=== PATIENT | female | born 2000 | race Caucasian/White ===

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

== ENCOUNTER 2019-06-12 22:02 | Emergency (ER) | payer MEDICAID, OTHER ==
[2019-06-12 22:57] LABS: ABSOLUTE BASOPHILS # (AUTO) 0.1 10^3/uL (0.0-0.2); ABSOLUTE EOSINOPHILS # (AUTO) 0.3 10^3/uL (0.0-0.6); ABSOLUTE LYMPHOCYTES (AUTO) 2.9 10^3/uL (0.5-4.7); ABSOLUTE MONOCYTES (AUTO) 0.8 10^3/uL (0.1-1.4); ABSOLUTE NEUT (AUTO) 7.2 10^3/uL (1.7-8.2); BASOPHILS % (AUTO) 0.9 % (0-2); EOSINOPHILS % (AUTO) 2.3 % (0-6); HEMATOCRIT 34.2 % (36.0-47.0); HEMOGLOBIN 11.3 g/dL (12.0-15.5); LYMPHOCYTES % (AUTO) 25.7 % (13-45); MEAN CORPUSCULAR HEMOGLOBIN 23.2 pg (27.0-33.4); MEAN CORPUSCULAR HGB CONC 33.1 g/dL (32.0-36.0); MEAN CORPUSCULAR VOLUME 70 fl (80-97); MONOCYTES % (AUTO) 7.1 % (3-13); PLATELET COUNT 254 10^3/uL (150-450); RED BLOOD COUNT 4.87 10^6/uL (3.72-5.28); RED CELL DISTRIBUTION WIDTH 18.3 % (11.5-14.0); TOTAL CELLS COUNTED % (AUTO) 100 %; WHITE BLOOD COUNT 11.3 10^3/uL (4.0-10.5)
[2019-06-12 23:06] LABS: APPEARANCE,URINE CLOUDY; BILIRUBIN,URINE NEGATIVE (NEGATIVE); COLOR,URINE YELLOW; GLUCOSE, URINE NEGATIVE (NEGATIVE); KETONES,URINE NEGATIVE (NEGATIVE); LEUKOCYTE ESTERASE,URINE NEGATIVE (NEGATIVE); NITRITE,URINE NEGATIVE (NEGATIVE); PROTEIN,URINE NEGATIVE (NEGATIVE); URINE SPECIFIC GRAVITY 1.021
[2019-06-12 23:16] LABS: ALBUMIN 4.3 g/dL (3.7-5.6); ALKALINE PHOSPHATASE 41 U/L (50-135); ANION GAP 11 (5-19); ASPARTATE AMINO TRANSFERASE 16 U/L (5-30); BILIRUBIN,DIRECT 0.1 mg/dL (0.0-0.4); BILIRUBIN,TOTAL 0.2 mg/dL (0.2-1.3); BLOOD UREA NITROGEN 6 mg/dL (7-20); CALCIUM 9.9 mg/dL (8.4-10.2); CARBON DIOXIDE 26 mmol/L (22-30); CHLORIDE 103 mmol/L (98-107); GLUCOSE 86 mg/dL (75-110); TOTAL PROTEIN 7.3 g/dL (6.3-8.2)
--- NOTE | 2019-06-13 01:26 | RADIOLOGY REPORT (SQ) ---
EXAM DESCRIPTION: US TRANSVAGINAL COMPLETED DATE/TME: 06/13/2019 00:07 CLINICAL HISTORY: 18 years Female, , pelvic pain 03/19/2019 COMPARISON: None. TECHNIQUE: Complete first trimester obstetrical ultrasound with transabdominal and transvaginal imaging. FINDINGS: Uterus: The uterus measures 11.0 x 6.7 x 6.5 cm. No myometrial abnormalities. Cervical length of 3.1 cm. Gestational sac: Normal-appearing gestational sac. pole: pole identified with a crown-rump length of 2.39 cm. heart motion: heart rate of 175 bpm. Yolk sac: Normal-appearing yolk sac. Placenta: Not well evaluated due to early gestational age. Right ovary: Right ovary measures 5.6 x 2.5 x 2.8 cm. Left ovary: The left ovary is enlarged measuring 12.5 x 9.5 x 13.1 cm. Left ovarian cyst measuring 11.7 x 0.9 x 12.8 cm. No internal blood flow or septations. Adnexa: No large adnexal masses. Free fluid: No free pelvic fluid. Duplex imaging: Color and spectral Doppler imaging demonstrates blood flow within the ovaries bilaterally. IMPRESSION: 1. Single live intrauterine with estimated gestational age of 9 weeks, 1 days by crown-rump length. heart rate of 175 bpm. 2. Large left ovarian cyst measuring 12.8 cm in greatest dimension without suspicious change. Gynecological evaluation recommended. Follow-up ultrasound in 6-12 weeks recommended to confirm stability.
--- NOTE | 2019-06-13 01:43 | ER Document Report ---
ED General - General Chief Complaint: Pelvic Pain Stated Complaint: LOWER ABDOMINAL PAIN Time Seen by Provider: 06/13/19 00:06 Primary Care Provider: LINH SUAREZ PA-C [Primary Care Provider] - Follow up as needed TRAVEL OUTSIDE OF THE [place] IN LAST 30 DAYS: No - HPI Notes: Patient is a 18-year-old female who presents emergency department for evaluation. She is a G1, P0 at approximately 9 weeks gestation. She was actually seen emergently last night for evaluation. She was diagnosed with a left ovarian cyst. She states tonight she had a sudden onset of left pelvic pain, sharp in nature, that lasted only few seconds. She went to the bathroom, and felt a "gush" of fluid. She states she did not believe it was urine because it was not yellow. She states she became concerned so she presents to the ED for further evaluation. She is following with OB at this time. - Related Data Allergies/Adverse Reactions: Gas Anesthesia Allergy (Uncoded 10/21/18 12:36) BP drops Home Medications: vitamins Past Medical History - General Information source: Patient - Social History Smoking Status: Never Smoker Family History: Reviewed & Not Pertinent Patient has suicidal ideation: No Patient has homicidal ideation: No - Past Medical History Cardiac Medical History: Denies: Hx Coronary Artery Disease, Hx Heart Attack, Hx Hypertension Pulmonary Medical History: Reports: Hx Asthma Denies: Hx Bronchitis, Hx COPD, Hx Pneumonia Neurological Medical History: Denies: Hx Cerebrovascular Accident, Hx Seizures Endocrine Medical History: Reports: Other - Hypoglycemia Renal/ Medical History: Denies: Hx Peritoneal Dialysis Musculoskeletal Medical History: Denies Hx Arthritis Past Surgical History: Reports: Hx Tonsillectomy - Immunizations Immunizations up to date: Yes Hx Diphtheria, Pertussis, Tetanus Vaccination: Yes Review of Systems - Review of Systems Constitutional: No symptoms reported EENT: No symptoms reported Cardiovascular: No symptoms reported Respiratory: No symptoms reported Gastrointestinal: No symptoms reported Female Genitourinary: See HPI Skin: No symptoms reported Neurological/Psychological: No symptoms reported Physical Exam - Vital signs Vitals: Temp Pulse Resp BP Pulse Ox 97.6 F 78 20 115/63 99 06/12/19 22:10 06/12/19 22:10 06/12/19 22:10 06/12/19 22:10 06/12/19 22:10 - Notes Notes: Vital signs reviewed, please refer to chart. Head is normocephalic, atraumatic. Pupils equal round, reactive to light. Neck is supple without meningismus. Heart is regular rate and rhythm. Lungs are clear to auscultation bilaterally. Abdomen is soft, nontender, normoactive bowel sounds throughout. Extremities without cyanosis, clubbing. Posterior calves are nontender. Peripheral pulses are equal. Skin is warm and dry. Course - Re-evaluation Re-evalutation: 06/13/19 01:41 This is a G1, P0 female who presents emerged department for evaluation of pelvic pain. Laboratory investigations were obtained and were largely unremarkable. Patient's ultrasound reveals a nearly 13 cm left ovarian cyst. The patient is already aware of this finding and is following up with gynecology. Otherwise, this is a 9-week 1 day via crown-rump length gestation, intrauterine, without any signs of other complication. The findings were explained to the patient. She is to follow-up as scheduled with OB, return to the ED with worsening. - Vital Signs Vital signs: Temp Pulse Resp BP Pulse Ox 97.6 F 78 20 115/63 99 06/12/19 22:10 06/12/19 22:10 06/12/19 22:10 06/12/19 22:10 06/12/19 22:10 - Laboratory Result Diagrams: 06/12/19 22:45 06/12/19 22:45 Laboratory results interpreted by me: 06/12/19 06/12/19 06/12/19 22:45 22:45 22:45 WBC 11.3 H Hgb 11.3 L Hct 34.2 L MCV 70 L MCH 23.2 L RDW 18.3 H BUN 6 L Creatinine 0.46 L Alkaline Phosphatase 41 L Beta HCG, Quant 43079.00 H Urine Urobilinogen 4.0 H - Diagnostic Test Radiology reviewed: Image reviewed, Reports reviewed Radiology results interpreted by me: 06/13/19 01:41 Obstetrics Ultrasound 06/13/19 00:07 IMPRESSION: 1. Single live intrauterine with estimated gestational age of 9 weeks, 1 days by crown-rump length. heart rate of 175 bpm. 2. Large left ovarian cyst measuring 12.8 cm in greatest dimension without suspicious change. Gynecological evaluation recommended. Follow-up ultrasound in 6-12 weeks recommended to confirm stability. 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 If you develop worsening or new concerning symptoms of any sort, please return immediately to the emergency department for evaluation. Referrals: LINH SUAREZ PA-C [Primary Care Provider] - Follow up as needed
[2019-06-13 02:04] VITALS: BP 113/67
== END 2019-06-13 02:03 | disposition home or self-care (01) ==
LOC: ER 22:02
DX: O34.81 Maternal care for other abnormalities of pelvic organs, first trimester (principal); O26.891 Other specified pregnancy related conditions, first trimester; R10.2 Pelvic and perineal pain; R10.30 Lower abdominal pain, unspecified; O99.511 Diseases of the respiratory system complicating pregnancy, first trimester; J45.909 Unspecified asthma, uncomplicated; Z3A.09 9 weeks gestation of pregnancy
CPT/HCPCS: 36415; 76817; 80053; 81001; 84702; 85025; 99284

== ENCOUNTER 2019-12-20 10:05 | Outpatient (CLI) | payer OTHER ==
[2019-12-20 10:44] LABS: APPEARANCE,URINE CLEAR; BILIRUBIN,URINE NEGATIVE (NEGATIVE); COLOR,URINE YELLOW; GLUCOSE, URINE NEGATIVE (NEGATIVE); KETONES,URINE NEGATIVE (NEGATIVE); LEUKOCYTE ESTERASE,URINE NEGATIVE (NEGATIVE); NITRITE,URINE NEGATIVE (NEGATIVE); PROTEIN,URINE 30 mg/dL (NEGATIVE); URINE SPECIFIC GRAVITY 1.015
--- NOTE | 2019-12-20 11:03 | Non Stress Test Report ---
Non Stress Test Datetime Report Generated by CPN: 12/20/2019 11:03 DEMOGRAPHIC Test Number: 1 EGA NST: 36.3 INDICATION Indication for Study (NST) Other: LC VITAL SIGNS Temperature - NST: 98.0 MONITORING Monitor Explained: Monitor Explained; Test Explained; Patient Verbalized Understanding Monitor Explained: Monitor Explained; Test Explained; Patient Verbalized Understanding Time on Monitor: 12/20/2019 10:29 Time on Monitor: 12/20/2019 10:27 Time off Monitor: 12/20/2019 11:00 NST Duration: 31 NST INTERVENTIONS NST Interventions: PO Hydration; Reposition Patient NST Interventions: PO Hydration; Reposition Patient Physician Notified NST: Dr. Rubio BABY A: [id number] BABY A Movement : Present Contraction Frequency : 3-4 FHR Baseline : 130 Accelerations : 15X15 Decelerations : None Variability : Moderate 6-25bpm NST Review: Meets Criteria for Reactive NST NST Review and Verified By : SARAH Arellano NST Results: Reactive NST REPORT Report Trigger: Send Report
[2019-12-20 11:09] LABS: URINE AMPHETAMINES SCREEN NEGATIVE; URINE BARBITURATES SCREEN NEGATIVE; URINE BENZODIAZEPINES SCREEN NEGATIVE; URINE COCAINE SCREEN NEGATIVE; URINE MARIJUANA (THC) SCREEN NEGATIVE; URINE METHADONE SCREEN NEGATIVE; URINE PHENCYCLIDINE SCREEN NEGATIVE
== END 2019-12-20 13:11 | disposition home or self-care (01) ==
LOC: LC 10:05
PROVIDERS: ATTEND Student in an Organized Health Care Education/Training Program
DX: O47.03 False labor before 37 completed weeks of gestation, third trimester (principal); Z3A.36 36 weeks gestation of pregnancy; Z87.891 Personal history of nicotine dependence
CPT/HCPCS: 59025; 80307; 81005; 84112

== ENCOUNTER 2020-01-03 15:49 | Inpatient (IN) | payer OTHER ==
[2020-01-03] MEDS ORDERED: RINGERS SOLUTION,LACTATED 1,000 ML IV ONE (16:48)
[2020-01-03 17:28] LABS: APPEARANCE,URINE SLIGHTLY-CLOUDY; BILIRUBIN,URINE NEGATIVE (NEGATIVE); COLOR,URINE AMBER; GLUCOSE, URINE NEGATIVE (NEGATIVE); KETONES,URINE 80 mg/dL (NEGATIVE); LEUKOCYTE ESTERASE,URINE MODERATE (NEGATIVE); NITRITE,URINE NEGATIVE (NEGATIVE); PROTEIN,URINE 30 mg/dL (NEGATIVE); URINE SPECIFIC GRAVITY 1.027
[2020-01-03 17:58] LABS: URINE AMPHETAMINES SCREEN NEGATIVE; URINE BARBITURATES SCREEN NEGATIVE; URINE BENZODIAZEPINES SCREEN NEGATIVE; URINE COCAINE SCREEN NEGATIVE; URINE MARIJUANA (THC) SCREEN NEGATIVE; URINE METHADONE SCREEN NEGATIVE; URINE PHENCYCLIDINE SCREEN NEGATIVE
[2020-01-03] MEDS ORDERED: HYDROXYZINE PAMOATE 50 MG CAPSULE ONE (18:02)
[2020-01-03] MEDS ORDERED: HYDROXYZINE PAMOATE 50 MG CAPSULE PO ONE (18:05)
[2020-01-03] MEDS ORDERED: OXYTOCIN 10 UNIT/ML VIAL ONE (19:13)
[2020-01-03] MEDS ORDERED: MISOPROSTOL 0.2 MG TABLET ONE (19:13)
[2020-01-03] MEDS ORDERED: OXYTOCIN/0.9 % SODIUM CHLORIDE 30 UNIT/500 ML RTUINJ ONE (19:14)
[2020-01-03] MEDS ORDERED: LIDOCAINE 1% INJ-PF (10 MG/ML) 30 ML SDV ONE (19:14)
[2020-01-03] MEDS ORDERED: RINGERS SOLUTION,LACTATED 1,000 ML IV PRN (19:35)
[2020-01-03 19:39] LABS: ABSOLUTE EOSINOPHILS # (AUTO) 0.1 10^3/uL (0.0-0.6); ABSOLUTE LYMPHOCYTES (AUTO) 1.1 10^3/uL (0.5-4.7); ABSOLUTE MONOCYTES (AUTO) 0.8 10^3/uL (0.1-1.4); ABSOLUTE NEUT (AUTO) 13.1 10^3/uL (1.7-8.2); BASOPHILS % (AUTO) 0.3 % (0-2); EOSINOPHILS % (AUTO) 0.4 % (0-6); HEMATOCRIT 29.9 % (36.0-47.0); HEMOGLOBIN 9.7 g/dL (12.0-15.5); LYMPHOCYTES % (AUTO) 7.4 % (13-45); MEAN CORPUSCULAR HEMOGLOBIN 22.6 pg (27.0-33.4); MEAN CORPUSCULAR HGB CONC 32.4 g/dL (32.0-36.0); MEAN CORPUSCULAR VOLUME 70 fl (80-97); MONOCYTES % (AUTO) 5.4 % (3-13); PLATELET COUNT 189 10^3/uL (150-450); RED BLOOD COUNT 4.28 10^6/uL (3.72-5.28); RED CELL DISTRIBUTION WIDTH 18.4 % (11.5-14.0); SEGMENTED NEUTROPHILS % (AUTO) 86.5 % (42-78); TOTAL CELLS COUNTED % (AUTO) 100 %; WHITE BLOOD COUNT 15.1 10^3/uL (4.0-10.5)
[2020-01-03] MEDS ORDERED: FENTANYL/BUPIVACAINE/NS/PF 300 MCG/150 ML RTUINJ EPI ONE (21:43)
[2020-01-03] MEDS ORDERED: BUPIVACAINE HCL 0.25 % INJ/PF (2.5 MG/1 ML) 30 ML VIAL ONE (21:43)
[2020-01-03] MEDS ORDERED: EPHEDRINE SULFATE INJ 50 MG/1 ML AMPULE ONE (21:43)
[2020-01-03] MEDS ORDERED: OXYTOCIN/0.9 % SODIUM CHLORIDE 30 UNIT/500 ML RTUINJ IV PRN (22:29)
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
[2020-01-04] MEDS ORDERED: MEASLES,MUMPS&RUBELLA VACC/PF 0.5 ML VIAL SUBCUT PRN (06:43)
[2020-01-04] MEDS ORDERED: NA PHOS,M-B/NA PHOS,DI-BA (ADULT) 133 ML ENEMA PR PRN (06:43)
[2020-01-04] MEDS ORDERED: MAGNESIUM HYDROXIDE SUSP 30 ML UDCUP PO PRN (06:43)
[2020-01-04] MEDS ORDERED: PROMETHAZINE HCL 25 MG TABLET PO PRN (06:43)
[2020-01-04] MEDS ORDERED: ACETAMINOPHEN 325 MG TABLET PO PRN (06:43)
[2020-01-04] MEDS ORDERED: ZOLPIDEM TARTRATE 5 MG TABLET PO PRN (06:43)
[2020-01-04] MEDS ORDERED: PROMETHAZINE HCL 25 MG SUPP.RECT PR PRN (06:43)
[2020-01-04] MEDS ORDERED: ACETAMINOPHEN 650 MG SUPP.RECT PR PRN (06:43)
[2020-01-04] MEDS ORDERED: DIPH/PERTUSS(ACELL)/TETANUS VAC/PF 0.5 ML SYR (>=10YO) IM PRN (06:43)
[2020-01-04] MEDS ORDERED: OXYTOCIN/0.9 % SODIUM CHLORIDE 30 UNIT/500 ML RTUINJ IV PRN (06:43)
[2020-01-04] MEDS ORDERED: DIBUCAINE 1% OINTMENT 28 GM TP PRN (06:43)
[2020-01-04] MEDS ORDERED: BENZOCAINE/MENTHOL AEROSOL SPRAY 56 ML TOP PRN (06:43)
[2020-01-04] MEDS ORDERED: DIPHENHYDRAMINE HCL 25 MG CAPSULE PO PRN (06:43)
[2020-01-04] MEDS ORDERED: PROMETHAZINE HCL INJ 25 MG/1 ML VIAL IV PRN (06:43)
[2020-01-04] MEDS ORDERED: ACETAMINOPHEN WITH CODEINE #3 TABLET PO PRN ×2 (06:43)
[2020-01-04] MEDS ORDERED: GLYCERIN/WITCH HAZEL LEAF 1 EACH MED..WIPE TP PRN (06:43)
[2020-01-04] MEDS ORDERED: PSEUDOEPHEDRINE HCL 30 MG TABLET PO PRN (06:43)
--- NOTE | 2020-01-04 09:37 | Delivery Summary ---
Del Sum A-C Datetime Report Generated by CPN: 01/04/2020 09:37 DELIVERY PERSONNEL DELIVERY PERSONNEL: [id number] Delivery Doctor:: Wendy Bryan MD Labor and Delivery Nurse:: Sofi Gray RNdecal applier Nurse:: Odalys Patel RN Metal Tank Builder/QUALITY CONTROL PROJECTIONIST: Julianna Green, ST MATERNAL INFORMATION Delivery Anesthesia: Epidural Medications After Delivery: Pitocin Bolus-Please Comment; Pitocin 30 Units in 500ml NS/D5W Estimated Blood Loss (ml): 200 Delivery QBL: 200 Maternal Complications: None LABOR SUMMARY EDC: 01/14/2020 00:00 No. Babies in Womb: 1 Attempted: No Labor Anesthesia: Epidural LABOR INFORMATION Reason for Induction: Not Applicable Onset of Labor: 01/04/2020 04:06 Complete Dilatation: 01/04/2020 06:11 Oxytocin: Augmentation Group B Beta Strep: negative Antibiotics # of Doses: n/a Antibiotics Time of Last Dose: n/a Name of Antibiotic Given: n/a Steroids Given: None Reason Steroids Not Administered: Not Applicable MEMBRANES Membranes Rupture Method: Artificial Rupture of Membranes: 01/04/2020 03:57 Length of Rupture (hr): 2.42 Amniotic Fluid Color: Clear Amniotic Fluid Amount: Small Amniotic Fluid Odor: Normal STAGES OF LABOR Stage 1 hr: 2 Stage 1 min: 5 Stage 2 hr: 0 Stage 2 min: 11 Stage 3 hr: 0 Stage 3 min: 5 Total Time in Labor hr: 2 Total Time in Labor min: 21 VAGINAL DELIVERY Episiotomy: None Laceration #1: None Laceration Extension #1: N/A Laceration Repair: Not Applicable Sponge Count Correct: N/A CSECTION DELIVERY Primary Indication: N/A Secondary Indication: N/A CSection Incidence: N/A Labor: N/A Elective: N/A CSection Incision: N/A BABY A INFORMATION Delivery Date/Time: 01/04/2020 06:22 Method of Delivery: Vaginal Nurse Controlled Delivery: No Born in Route : No : N/A Forceps: N/A Vacuum Extraction: N/A Shoulder Dystocia : No PRESENTATION/POSITION BABY A Presentation: Cephalic Cephalic Presentation: Vertex Vertex Position: Left Occipital Anterior Breech Presentation: N/A PLACENTA INFORMATION BABY A Placenta Delivery Time : 01/04/2020 06:27 Placenta Method of Delivery: Spontaneous Placenta Status: Delivered SCORES BABY A Heart Rate 1 min: >100 bpm Resp Effort 1 min: Good Cry Reflex Irritability 1 min: Cough or Sneeze or Pulls Away Muscle Tone 1 min: Active Motion Color 1 min: Blue/Pale Resuscitation Effort 1 min: Tactile Stimulation SCORE 1 MIN: 8 Heart Rate 5 min: >100 bpm Resp Effort 5 min: Good Cry Reflex Irritability 5 min: Cough or Sneeze or Pulls Away Muscle Tone 5 min: Active Motion Color 5 min: Body [place], Extremities Blue Resuscitation Effort 5 min: Tactile Stimulation SCORE 5 MIN: 9 INFANT INFORMATION BABY A Gestational Age at Delivery: 38.4 Gestational Status: Early Term- 37- 38.6 Weeks Outcome : Liveborn Infant Condition : Stable Infant Sex: Female IDENTIFICATION BABY A Infant Verification Date/Time: 01/04/2020 06:29 ID Band Number: [id number] Mother's Name Verified: Yes RN Verifying Infant: Mary Anne PatelLinden MSITH Additional Verifying Personnel: Sarkis Palencia RN WEIGHT/LENGTH BABY A Infant Birthweight (gm): 3514 Weight (lb): 7 Infant Weight (oz): 12 Length (in): 20.00 Length (cm): 50.80 CORD INFORMATION BABY A No. Cord Vessels: 3 Nuchal Cord : N/A Cord Blood Taken: Yes-For Storage (Mom's Blood type +) Infant Suction: Mouth; Nose ASSESSMENT BABY A Physical Findings at Delivery: Molding of the Head Physical Findings- Other: see full nursery senior principal process engineer Respirations: Appears Normal Skin to Skin: Yes Skin to Skin Time (min): 75 Cell Room Operator/ALS Called : No Infant Care By: Mason Patel RN Transferred To: Remains with Mother BABY B INFORMATION : N/A SIGNATURES Signature: with User ID: [email or web address]
[2020-01-04] MEDS: DOCUSATE SODIUM 100 MG CAPSULE PO SCH ×2 (09:55→17:20)
[2020-01-04] MEDS: FAMOTIDINE 20 MG TABLET PO SCH ×2 (09:55→22:50)
[2020-01-04] MEDS: FERROUS SULFATE 325 MG TABLET PO SCH ×2 (09:55→17:20)
[2020-01-04] MEDS: PRENATAL VITAMIN W DHA CAPSULE PO SCH (09:55)
[2020-01-04] MEDS: SENNOSIDES/DOCUSATE 8.6-50 MG 1 EACH TABLET PO SCH (09:56)
[2020-01-04] MEDS ORDERED: SERTRALINE HCL 50 MG TABLET PO SCH ×2 (10:00→22:00)
[2020-01-04] MEDS: IBUPROFEN 800 MG TABLET PO SCH ×2 (14:34→22:49)
[2020-01-05] MEDS: IBUPROFEN 800 MG TABLET PO SCH ×2 (05:50→13:43)
[2020-01-05 06:31] LABS: HEMATOCRIT 28.9 % (36.0-47.0); HEMOGLOBIN 9.5 g/dL (12.0-15.5); MEAN CORPUSCULAR HEMOGLOBIN 22.7 pg (27.0-33.4); MEAN CORPUSCULAR HGB CONC 32.7 g/dL (32.0-36.0); MEAN CORPUSCULAR VOLUME 69 fl (80-97); PLATELET COUNT 180 10^3/uL (150-450); RED BLOOD COUNT 4.17 10^6/uL (3.72-5.28); RED CELL DISTRIBUTION WIDTH 18.6 % (11.5-14.0); WHITE BLOOD COUNT 11.2 10^3/uL (4.0-10.5)
[2020-01-05 08:25] VITALS: BP 114/68
--- NOTE | 2020-01-05 09:16 | PDOC PROGRESS REPORT ---
Subjective Progress Note for:: 01/05/20 Subjective:: Doing well No issues. S/p PP day #1. TOlerated PO well overnight and breakfast. Voiding and passing gas. Ambulating without dizziness. Breast feeding: no issues Pain well managed iwth Ibuprofen. Bleeding light. Reason For Visit: LABOR CHECK Physical Exam - Physical Exam Vital Signs: Temp Pulse Resp BP Pulse Ox 97.4 F 66 16 114/68 100 01/05/20 08:24 01/05/20 08:24 01/05/20 08:24 01/05/20 08:24 01/05/20 08:24 Intake & Output 01/04/20 01/05/20 01/06/20 06:59 06:59 06:59 Weight 91.8 kg General appearance: PRESENT: no acute distress, cooperative Respiratory exam: PRESENT: clear to auscultation gil Cardiovascular exam: PRESENT: RRR, +S1, +S2 Pulses: PRESENT: normal dorsalis pedis pul, +2 pedal pulses bilateral Vascular exam: PRESENT: normal capillary refill GI/Abdominal exam: PRESENT: normal bowel sounds - Fundus firm on palpation and 1 below umbilicus, soft Extremities exam: PRESENT: full ROM. ABSENT: calf tenderness, clubbing, pedal edema Neurological exam: PRESENT: alert, awake, oriented to person, oriented to place, oriented to time, oriented to situation, CN II-XII grossly intact. ABSENT: motor sensory deficit Psychiatric exam: PRESENT: appropriate affect, normal mood. ABSENT: homicidal ideation, suicidal ideation Result Laboratory Results: 01/05/20 06:10 01/05/20 06:10 WBC 11.2 H RBC 4.17 Hgb 9.5 L Hct 28.9 L MCV 69 L MCH 22.7 L MCHC 32.7 RDW 18.6 H Plt Count 180 Assessment & Plan - Diagnosis (1) Spontaneous vaginal delivery Is this a current diagnosis for this admission?: Yes (2) Anemia complicating in third trimester Is this a current diagnosis for this admission?: Yes - Time Time Spent with patient: Less than 15 minutes Anticipated discharge: Home Within: within 48 hours - Plan Summary Plan Summary: 19 yo s/p , PP day #1 -Doing well. -Tolerating PO well. -Voiding and passing gas -Hgb 9.7 on admit and now 9.5 . COntinue PNV daily and take Iron 325 mg daily, prescribed -Fundus firm and one below Bleeding light -breast feeding; no issues -Baby doing well -Discussed discharge, likely in am -RH positive -continue routine PP care
[2020-01-05] MEDS: PRENATAL VITAMIN W DHA CAPSULE PO SCH (09:47)
[2020-01-05] MEDS: FERROUS SULFATE 325 MG TABLET PO SCH ×2 (09:47→17:10)
[2020-01-05] MEDS: FAMOTIDINE 20 MG TABLET PO SCH (09:48)
[2020-01-05] MEDS: SENNOSIDES/DOCUSATE 8.6-50 MG 1 EACH TABLET PO SCH (09:48)
[2020-01-05] MEDS: DOCUSATE SODIUM 100 MG CAPSULE PO SCH ×2 (09:48→17:09)
--- NOTE | 2020-01-05 16:07 | PDOC DISCHARGE SUMMARY ---
Impression - Admit/DC Date/PCP Admission Date/Primary Care Provider: 01/03/20 19:18 Discharge Date: 01/05/20 - Discharge Diagnosis (1) Spontaneous vaginal delivery Is this a current diagnosis for this admission?: Yes (2) Anemia complicating in third trimester Is this a current diagnosis for this admission?: Yes - Additional Information Resuscitation Status: Full Code - Stable folllowing spontaneous vaginal delivery. Baby doing well. She has light bleeding, firm fundus below umbilicus, and good pain management. No bowel or bladder complaints. Hgb was 9.7 on admission and 9.5 after delivery. Continue vitamin daily and Iron tablet x1 daily until post visit in 4-6 weeks. She may take stool softner (Colace for instance) PRN constipation. Motrin 800mg Q 8 hours for pain with tylenol as needed. Precautions given. Discharge Diet: As Tolerated Discharge Activity: Activity As Tolerated, No Lifting Over 10 Pounds, No tub bath Prescriptions: Ferrous Sulfate [Feosol 325 mg Tablet] 325 mg PO DAILY 30 Days #30 tablet Ibuprofen [Motrin 800 mg Tablet] 800 mg PO Q8 10 Days #30 tablet Home Medications: Ondansetron [Zofran Odt 4 mg Tablet] 4 mg PO Q8HP PRN #30 tab.rapdis 10/15/18 Albuterol Sulfate [Albuterol Sulfate Hfa] 8.5 gm IH PRN PRN 10/21/18 Ferrous Sulfate, Dried [Iron] 159 mg PO DAILY 12/20/19 Pnv No.103/Folic/Om3s/Fish Oil [ Gummies] 1 each PO DAILY 12/20/19 Sertraline HCl [Zoloft 50 mg Tablet] 75 mg PO DAILY 01/03/20 Acetaminophen [Tylenol 325 mg Tablet] 650 mg PO Q4HP PRN tablet 01/05/20 Benzocaine/Menthol [Dermoplast Aerosol Western 56 ml] 1 applic TOP PRN PRN can 01/05/20 Dibucaine 1% Ointment [Nupercainal 1% Oint 28 gm] 1 applic TP PRN PRN tube 01/05/20 Ferrous Sulfate [Feosol 325 mg Tablet] 325 mg PO DAILY 30 Days #30 tablet 01/05/20 Ibuprofen [Motrin 800 mg Tablet] 800 mg PO Q8 10 Days #30 tablet 01/05/20 Vit/Dha [ Multi + Dha Capsule] 1 cap PO DAILY capsule 01/05/20 History of Present Illiness History of Present Illness: BELINDA HA is a 19 year old female Physical Exam - Physical Exam Vital Signs: Temp Pulse Resp BP Pulse Ox 97.4 F 66 16 114/68 100 01/05/20 15:55 01/05/20 15:55 01/05/20 15:55 01/05/20 15:55 01/05/20 15:55 Intake & Output 01/04/20 01/05/20 01/06/20 06:59 06:59 06:59 Weight 91.8 kg Results Laboratory Results: WBC 11.2 10^3/uL (4.0-10.5) H 01/05/20 06:10 RBC 4.17 10^6/uL (3.72-5.28) 01/05/20 06:10 Hgb 9.5 g/dL (12.0-15.5) L 01/05/20 06:10 Hct 28.9 % (36.0-47.0) L 01/05/20 06:10 MCV 69 fl (80-97) L 01/05/20 06:10 MCH 22.7 pg (27.0-33.4) L 01/05/20 06:10 MCHC 32.7 g/dL (32.0-36.0) 01/05/20 06:10 RDW 18.6 % (11.5-14.0) H 01/05/20 06:10 Plt Count 180 10^3/uL (150-450) 01/05/20 06:10 Lymph % (Auto) 7.4 % (13-45) L 01/03/20 19:28 [place] % (Auto) 5.4 % (3-13) 01/03/20 19:28 Eos % (Auto) 0.4 % (0-6) 01/03/20 19:28 Baso % (Auto) 0.3 % (0-2) 01/03/20 19:28 Absolute Neuts (auto) 13.1 10^3/uL (1.7-8.2) H 01/03/20 19:28 Absolute Lymphs (auto) 1.1 10^3/uL (0.5-4.7) 01/03/20 19:28 Absolute Monos (auto) 0.8 10^3/uL (0.1-1.4) 01/03/20 19:28 Absolute Eos (auto) 0.1 10^3/uL (0.0-0.6) 01/03/20 19:28 Absolute Basos (auto) 0.0 10^3/uL (0.0-0.2) 01/03/20 19:28 Seg Neutrophils % 86.5 % (42-78) H 01/03/20 19:28 POC Glucose 75 mg/dL (70-110) 01/03/20 18:17 Urine Color SILVERIO 01/03/20 17:12 Urine Appearance SLIGHTLY-CLOUDY 01/03/20 17:12 Urine pH 5.0 (5.0-9.0) 01/03/20 17:12 Ur Specific [place] 1.027 01/03/20 17:12 Urine Protein 30 mg/dL (NEGATIVE) H 01/03/20 17:12 Urine Glucose (UA) NEGATIVE mg/dL (NEGATIVE) 01/03/20 17:12 Urine Ketones 80 mg/dL (NEGATIVE) H 01/03/20 17:12 Urine Blood LARGE (NEGATIVE) H 01/03/20 17:12 Urine Nitrite NEGATIVE (NEGATIVE) 01/03/20 17:12 Urine Bilirubin NEGATIVE (NEGATIVE) 01/03/20 17:12 Urine Urobilinogen 4.0 mg/dL (<2.0) H 01/03/20 17:12 Ur Leukocyte Esterase MODERATE (NEGATIVE) H 01/03/20 17:12 Urine Ascorbic Acid NEGATIVE (NEGATIVE) 01/03/20 17:12 Membranes Rupture NEGATIVE (NEGATIVE) 01/03/20 22:01 Urine Opiates Screen NEGATIVE 01/03/20 17:12 Urine Methadone Screen NEGATIVE 01/03/20 17:12 Ur Barbiturates Screen NEGATIVE 01/03/20 17:12 Ur Phencyclidine Scrn NEGATIVE 01/03/20 17:12 Ur Amphetamines Screen NEGATIVE 01/03/20 17:12 U Benzodiazepines Scrn NEGATIVE 01/03/20 17:12 Urine Cocaine Screen NEGATIVE 01/03/20 17:12 U Marijuana (THC) Screen NEGATIVE 01/03/20 17:12 RPR NONREACTIVE (NONREACTIVE) 01/03/20 19:28 Blood Type B POSITIVE 01/03/20 19:28 Antibody Screen NEGATIVE 01/03/20 19:28 Stroke Is this a Stroke Patient?: No Acute Heart Failure - Is this a Heart Failure Patient?: No
== END 2020-01-05 18:05 | disposition home or self-care (01) | DRG 807 ==
LOC: LC 15:49 → LR 19:18 → 2S 01-04 09:22
PROVIDERS: ADMIT Obstetrics & Gynecology; ATTEND Obstetrics & Gynecology
PROC: 10E0XZZ Delivery of Products of Conception, External Approach (ICD-10-PCS; principal; 2020-01-04)
DX: O99.52 Diseases of the respiratory system complicating childbirth (principal); Z37.0 Single live birth; O99.02 Anemia complicating childbirth; J45.909 Unspecified asthma, uncomplicated; O99.344 Other mental disorders complicating childbirth; D64.9 Anemia, unspecified; F41.9 Anxiety disorder, unspecified; F32.9 Major depressive disorder, single episode, unspecified; Z62.810 Personal history of physical and sexual abuse in childhood; Z90.721 Acquired absence of ovaries, unilateral; Z90.79 Acquired absence of other genital organ(s); Z79.51 Long term (current) use of inhaled steroids; Z3A.38 38 weeks gestation of pregnancy
CPT/HCPCS: 36415; 80307; 81005; 82962; 84112; 85025; 85027; 86592; 86850; 86900; 86901; 94760; J2590; J3010; J3490

== ENCOUNTER 2020-02-06 17:51 | Emergency (ER) | payer OTHER ==
--- NOTE | 2020-02-06 18:41 | ER Document Report ---
ED Medical Screen (RME) - General Chief Complaint: Vaginal Bleeding Stated Complaint: VAGINAL BLEEDING,ABDOMINAL PAIN Time Seen by Provider: 02/06/20 18:34 Mode of Arrival: Ambulatory Information source: Patient Notes: 19-year-old female presented to ED for vaginal bleeding since the of her child on January 02. She states her INTELLIGENCE SUPPORT OFFICER is current INTELLIGENCE SUPPORT OFFICER but she delivered at [facility]. She states 4 days after delivery she was soaking about 4 pads a day after that she started soaking 1 pad a day until today she started having 2 pads in an hour. She states she went to her follow-up appointment with INTELLIGENCE SUPPORT OFFICER and they focused on her depression screening and told her that she was bleeding because she was having sex with her . Patient states she told them she was not having sex and they "pretty much told her she was lying "and focused on the screening exam for depression. She states they did not even do a pelvic exam on her visit. States she does smoke 2 to 3 cigarettes a day. She states she is also breast-feeding her child. I have greeted and performed a rapid initial assessment of this patient. A comprehensive ED assessment and evaluation of the patient, analysis of test results and completion of medical decision making process will be conducted by an additional ED providers. TRAVEL OUTSIDE OF THE [place] IN LAST 30 DAYS: No - Related Data Allergies/Adverse Reactions: Opioids - Morphine Analogues Adverse Reaction (Mild, Verified 01/03/20 21:40) VOMITING Gas Anesthesia Allergy (Unknown, Uncoded 01/03/20 16:02) BP drops Past Medical History - Past Medical History Cardiac Medical History: Denies: Hx Coronary Artery Disease, Hx Heart Attack, Hx Hypertension Pulmonary Medical History: Reports: Hx Asthma Denies: Hx Bronchitis, Hx COPD, Hx Pneumonia Neurological Medical History: Denies: Hx Cerebrovascular Accident, Hx Seizures Renal/ Medical History: Denies: Hx Peritoneal Dialysis Musculoskeltal Medical History: Denies Hx Arthritis Psychiatric Medical History: Reports: Hx Depression Past Surgical History: Reports: Hx Tonsillectomy - Immunizations Immunizations up to date: Yes Hx Diphtheria, Pertussis, Tetanus Vaccination: Yes Physical Exam - Vital signs Vitals: Temp Pulse Resp BP Pulse Ox 97.9 F 76 18 115/65 99 02/06/20 17:56 02/06/20 17:56 02/06/20 17:56 02/06/20 17:56 02/06/20 17:56 Course - Vital Signs Vital signs: Temp Pulse Resp BP Pulse Ox 97.9 F 76 18 115/65 99 02/06/20 17:56 02/06/20 17:56 02/06/20 17:56 02/06/20 17:56 02/06/20 17:56
[2020-02-06 19:39] LABS: ABSOLUTE BASOPHILS # (AUTO) 0.1 10^3/uL (0.0-0.2); ABSOLUTE EOSINOPHILS # (AUTO) 0.3 10^3/uL (0.0-0.6); ABSOLUTE LYMPHOCYTES (AUTO) 2.1 10^3/uL (0.5-4.7); ABSOLUTE MONOCYTES (AUTO) 0.5 10^3/uL (0.1-1.4); ABSOLUTE NEUT (AUTO) 4.5 10^3/uL (1.7-8.2); BASOPHILS % (AUTO) 1.1 % (0-2); EOSINOPHILS % (AUTO) 4.3 % (0-6); HEMOGLOBIN 11.7 g/dL (12.0-15.5); LYMPHOCYTES % (AUTO) 27.7 % (13-45); MEAN CORPUSCULAR HEMOGLOBIN 23.5 pg (27.0-33.4); MEAN CORPUSCULAR HGB CONC 32.5 g/dL (32.0-36.0); MEAN CORPUSCULAR VOLUME 72 fl (80-97); MONOCYTES % (AUTO) 6.4 % (3-13); PLATELET COUNT 220 10^3/uL (150-450); RED BLOOD COUNT 4.98 10^6/uL (3.72-5.28); RED CELL DISTRIBUTION WIDTH 20.4 % (11.5-14.0); SEGMENTED NEUTROPHILS % (AUTO) 60.5 % (42-78); TOTAL CELLS COUNTED % (AUTO) 100 %; WHITE BLOOD COUNT 7.5 10^3/uL (4.0-10.5)
[2020-02-06 19:47] LABS: APPEARANCE,URINE CLEAR; BILIRUBIN,URINE NEGATIVE (NEGATIVE); COLOR,URINE YELLOW; GLUCOSE, URINE NEGATIVE (NEGATIVE); KETONES,URINE NEGATIVE (NEGATIVE); LEUKOCYTE ESTERASE,URINE TRACE (NEGATIVE); NITRITE,URINE NEGATIVE (NEGATIVE); PROTEIN,URINE NEGATIVE (NEGATIVE); URINE SPECIFIC GRAVITY 1.023
[2020-02-06 19:57] LABS: ALBUMIN 4.5 g/dL (3.5-5.0); ALKALINE PHOSPHATASE 72 U/L (38-126); ANION GAP 8 (5-19); ASPARTATE AMINO TRANSFERASE 27 U/L (14-36); BILIRUBIN,TOTAL 0.8 mg/dL (0.2-1.3); BLOOD UREA NITROGEN 10 mg/dL (7-20); CALCIUM 9.8 mg/dL (8.4-10.2); CARBON DIOXIDE 27 mmol/L (22-30); CHLORIDE 103 mmol/L (98-107); GLUCOSE 82 mg/dL (75-110); POTASSIUM 3.8 mmol/L (3.6-5.0); TOTAL PROTEIN 7.5 g/dL (6.3-8.2)
--- NOTE | 2020-02-06 20:26 | RADIOLOGY REPORT (SQ) ---
Ultrasound pelvis transvaginal on 02/06/2020 at 7:42 PM CLINICAL INDICATION: Six weeks with increasing vaginal bleeding COMPARISON: None FINDINGS: Multiple sonographic images are obtained throughout the pelvis by transabdominal and transvaginal approach, both transverse and sagittal images are obtained. Uterus measures approximately 9.3 x 4.6 x 5.6 cm. Endometrial stripe measures 1.4 cm which is within normal limits. There is some fluid and blood in the endometrium. No evidence of retained products of conception are noted. Uterine myometrium appears homogeneous. Minimal fluid is noted in the endocervical canal. The right ovary measures approximately 4.1 x 2.2 x 3.5 cm. Flow is demonstrated in the right ovary. The patient is reportedly status post left oophorectomy. No adnexal mass or fluid collection is noted. No free fluid is noted. IMPRESSION: Essentially unremarkable exam.
--- NOTE | 2020-02-06 20:40 | ER Document Report ---
ED GI/ - General Chief Complaint: Vaginal Bleeding Stated Complaint: VAGINAL BLEEDING,ABDOMINAL PAIN Time Seen by Provider: 02/06/20 18:34 Mode of Arrival: Ambulatory Notes: Patient is a 19-year-old female that comes emergency department for chief complaint vaginal bleeding, intermittent dizziness, intermittent lower abdominal cramping. She states she has had bleeding since her spontaneous vaginal delivery on 01/04/2020 at this hospital, she states she followed up with [facility]LEVISION INSPECTOR, she states that they referred her to psychiatry because they are concerned about depression, she states that she was seen earlier today by psychiatry and prescribed Zoloft and a sleeping medication she cannot name. She states that she is going through approximately 1 pad a day with her bleeding but today she went through 2 pads rapidly and became concerned. She denies current symptoms including current pain, heavy bleeding at this time, dizziness, passing out. She denies fever/chills, discolored vaginal discharge, or any other complaints. She is on no other medications. This was her first and first child. She is currently breast-feeding sporadically and supplementing with formula. TRAVEL OUTSIDE OF THE [place] IN LAST 30 DAYS: No - Related Data Allergies/Adverse Reactions: Opioids - Morphine Analogues Adverse Reaction (Mild, Verified 01/03/20 21:40) VOMITING Gas Anesthesia Allergy (Unknown, Uncoded 01/03/20 16:02) BP drops Home Medications: zoloft, sleep pill Past Medical History - General Information source: Patient - Social History Smoking Status: Current Every Day Smoker Chew tobacco use (# tins/day): No Frequency of alcohol use: None Drug Abuse: None Family History: Reviewed & Not Pertinent Patient has homicidal ideation: Yes - Past Medical History Cardiac Medical History: Denies: Hx Coronary Artery Disease, Hx Heart Attack, Hx Hypertension Pulmonary Medical History: Reports: Hx Asthma Denies: Hx Bronchitis, Hx COPD, Hx Pneumonia Neurological Medical History: Denies: Hx Cerebrovascular Accident, Hx Seizures Renal/ Medical History: Denies: Hx Peritoneal Dialysis Musculoskeletal Medical History: Denies Hx Arthritis Psychiatric Medical History: Reports: Hx Depression Past Surgical History: Reports: Hx Tonsillectomy - Immunizations Immunizations up to date: Yes Hx Diphtheria, Pertussis, Tetanus Vaccination: Yes Review of Systems - Review of Systems Constitutional: No symptoms reported EENT: No symptoms reported Cardiovascular: No symptoms reported Respiratory: No symptoms reported Gastrointestinal: No symptoms reported Genitourinary: No symptoms reported Female Genitourinary: See HPI Musculoskeletal: No symptoms reported Skin: No symptoms reported Hematologic/Lymphatic: No symptoms reported Neurological/Psychological: No symptoms reported Physical Exam - Vital signs Vitals: Temp Pulse Resp BP Pulse Ox 97.9 F 76 18 115/65 99 02/06/20 17:56 02/06/20 17:56 02/06/20 17:56 02/06/20 17:56 02/06/20 17:56 - Notes Notes: GENERAL: Alert, interacts well. No acute distress. HEAD: Normocephalic, atraumatic. EYES: Pupils equal, round, and reactive to light. Extraocular movements intact. ENT: Oral mucosa moist, tongue midline. Oropharynx unremarkable. Airway patent. LUNGS: Clear to auscultation bilaterally, no wheezes, rales, or rhonchi. No respiratory distress. Non-tender chest wall. HEART: Regular rate and rhythm. No murmur ABDOMEN: Soft, non-tender. Non-distended. Bowel sounds present in all 4 quadrants. GENITOURINARY: Deferred EXTREMITIES: Moves all 4 extremities spontaneously. No edema, normal radial and dorsalis pedis pulses bilaterally. No cyanosis. BACK: no cervical, thoracic, lumbar midline tenderness. No saddle anesthesia, normal distal neurovascular exam. Moves all extremities in full range of motion. NEUROLOGICAL: Alert and oriented x3. Normal speech. Cranial nerves II through XII grossly intact. Strength 5/5 in all extremities. PSYCH: Normal affect, normal mood. SKIN: Warm, dry, normal turgor. No rashes or lesions noted. Course - Re-evaluation Re-evalutation: Patient smiling, talkative, well-appearing. Vital signs unremarkable. Abdomen soft and benign. She reports she is bleeding much less now. CBC unremarkable with significantly improved hemoglobin compared to prior, remaining work-up unremarkable. Ultrasound showing no overt abnormality. I discussed these findings with patient, she is very relieved. I did offer a pelvic exam to evaluate her bleeding and potentially perform swabs, patient declined. Discussed how this is most likely hormonal and should simply resolve with time because no concerning findings are seen, her evaluation is reassuring. Patient request copy of her report/labs, states she will follow-up with TELEVISION INSPECTOR, states she will return for any concerning symptoms, these were discussed. Patient stable and well-appearing at time of discharge. - Vital Signs Vital signs: Temp Pulse Resp BP Pulse Ox 98.1 F 72 16 92/58 L 100 02/06/20 20:56 02/06/20 20:50 02/06/20 20:50 02/06/20 20:50 02/06/20 20:50 - Laboratory Result Diagrams: 02/06/20 17:20 02/06/20 17:20 Laboratory results interpreted by me: 02/06/20 02/06/20 17:20 17:20 Hgb 11.7 L MCV 72 L MCH 23.5 L RDW 20.4 H Urine Blood MODERATE H Urine Urobilinogen 2.0 H Ur Leukocyte Esterase TRACE H Discharge - Discharge Clinical Impression: hemorrhage of vagina, Abdominal cramping, Dizziness Condition: Stable Disposition: HOME, SELF-CARE Additional Instructions: Your blood counts (red blood cells/hemoglobin), evaluation, and ultrasound are re-assuring. The bleeding is most likely from hormonal causes and should simply resolve with time. Start your prescribed medications, follow-up with your TELEVISION INSPECTOR appointment with your report and labs, return for any concerning symptoms including severe worsening pain, fever, heavy bleeding with dizziness or passing out, or any other concerning or worsening symptoms. Forms: Return to Work
[2020-02-06 20:57] VITALS: BP 92/58
== END 2020-02-06 20:56 | disposition home or self-care (01) ==
LOC: ER 17:51
DX: O72.2 Delayed and secondary postpartum hemorrhage (principal); R10.9 Unspecified abdominal pain; R42 Dizziness and giddiness; R10.30 Lower abdominal pain, unspecified; Z79.899 Other long term (current) drug therapy; Z88.8 Allergy status to other drugs, medicaments and biological substances
CPT/HCPCS: 36415; 76830; 80053; 81001; 84702; 85025; 86850; 86900; 86901; 99284

== ENCOUNTER → 2020-02-27 | Outpatient (CLI) | payer OTHER ==
--- NOTE | 2020-02-27 10:15 | ER [facility] ASSESSMENT REPORT ---
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 - Symptoms Subjective Fever([place] feverish): No Chills: Yes Muscule Aches: Yes Runny Nose: No Sore Throat: Yes Cough (New or worsening chronic cough): Yes Shortness of breath: Yes Nausea or Vomiting: Yes Headache: Yes Abdominal Pain: No Diarrhea(3 or more loose stools in last 24 hours): No - Do you have any of the following Chronic lung disease: Asthma or emphysema or COPD: Yes Chronic Lung Disease Comment: asthma Cystic Fibrosis: No Diabetes: No Diabetes Comment: hypoglycemic High Blood Pressure: No Cardiovascular Disease: No Chronic Kidney Disease: No Chronic Liver Disease: No Chronic blood disorder like Sickle Cell Disease: No Weak immune system due to disease or medication: No Neurologic condition that limits movement: No Developmental delay - Moderate to Severe: No Recent (within past 2 weeks) or current : No Morbid Obesity (>100 pounds over ideal weight): No - Objective Temperature: 96.1 F Pulse Rate: 92 Respiratory Rate: 16 Blood Pressure: 123/72 O2 Sat by Pulse Oximetry: 100 Objective: Given above, testing performed: If Testing Performed: Test Specimen Type Sent to General - General Information source: Patient Notes: Patient presents to the [facility] for screening for the coronavirus. 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 Patient reports a history of asthma as well as hypoglycemia. Patient is a current smoker. - Related Data Allergies/Adverse Reactions: Opioids - Morphine Analogues Adverse Reaction (Mild, Verified 01/03/20 21:40) VOMITING Gas Anesthesia Allergy (Unknown, Uncoded 01/03/20 16:02) BP drops Past Medical History - General Information source: Patient - Social History Smoking Status: Current Every Day Smoker Family History: Reviewed & Not Pertinent - Past Medical History Cardiac Medical History: Denies: Hx Coronary Artery Disease, Hx Heart Attack, Hx Hypertension Pulmonary Medical History: Reports: Hx Asthma Denies: Hx Bronchitis, Hx COPD, Hx Pneumonia Neurological Medical History: Denies: Hx Cerebrovascular Accident, Hx Seizures Endocrine Medical History: Comment Only: Hx Diabetes Mellitus Type 1 - hypoglycemia Renal/ Medical History: Denies: Hx Peritoneal Dialysis Musculoskeletal Medical History: Denies Hx Arthritis Psychiatric Medical History: Reports: Hx Depression Past Surgical History: Reports: Hx Tonsillectomy Physical Exam - Notes Notes: Full physical exam could not be performed due to covid 19 isolation protocols. Constitutional: Nontoxic appearance, no acute distress Eyes: Nonicteric, extraocular movements intact, sclera clear ENT: Posterior pharynx clear without exudates Cardiovascular: Heart rate and rhythm regular, no JVD Respiratory: Breath sounds clear bilaterally, nonlabored breathing, no use of accessory muscles, no tachypnea Gastrointestinal: Abdomen not distended Muculoskeletal: Moves all extremities well Skin: Normal color Neuro: Awake alert oriented, normal speech Psych: Normal mood and affect Diagnostic Results Laboratory Results: The patient was evaluated during the global Covid 19 pandemic, and that diagnosis was suspected/considered upon their initial presentation. Their evaluation, treatment and testing was consistent with current guidelines for patients who present with complaints or symptoms that may be related to Covid 19. Patient presents with upper respiratory symptoms worrisome for possible Covid 19. Patient does not have emergency worrying symptoms such as difficulty breathing, shortness of breath, chest pain, pressure, confusion or cyanosis. Patient appears suitable for discharge as they are not of an advanced age, do not have any chronic medical conditions such as diabetes, CAD, immune deficiency, or chronic kidney disease. Patient's vital signs are stable and p atient is nontoxic in appearance. Good return precautions have been discussed with patient, patient verbalized understanding and is agreeable with discharge plan of care at this time. Patient Education/Counseling Counseling/Education: Patient was provided with discharge information including: As a person under investigation for Covid 19, the [place] department of Health and Human Services, division of public health advises you to adhere to the following guidance until your test results are reported to you. If your test result is positive, you will receive additional information from your provider and your local health department at that time. Remain at home until you are cleared by the health provider or public health authorities. Keep a log of visitors to your home, notify any visitors to your home of your isolation status. If you plan to move to a new address or leave the county, notify the local health department in your County. Call your doctor or seek care if you have an urgent medical need. Before seeking medical care, call ahead to get instructions from the provider before arriving at the medical office clinic or hospital. Notify them that you are being tested for the virus that causes Covid 19 so that arrangements can be made, as necessary, to prevent transmission to others in the healthcare setting. Next, notify the local health department in your county. If a medical emergency arises and you need to call 911, inform the first responders that you are being tested for the virus that causes Covid 19. Next, notify the local health department in your county. [facility] Discharge - Discharge Clinical Impression: Encounter for screening laboratory testing for COVID-19 virus Condition: Stable Disposition: Home; Selfcare
[2020-02-27 10:16] VITALS: BP 123/72
== END ==
LOC: RDC 09:35
PROVIDERS: ATTEND Nurse Practitioner Family
DX: Z20.828 Contact with and (suspected) exposure to other viral communicable diseases (principal)
CPT/HCPCS: 87070; 87880; 87635; C9803; 99201; 99211

== ENCOUNTER 2020-03-14 22:22 | Emergency (ER) | payer OTHER ==
--- NOTE | 2020-03-14 23:22 | ER Document Report ---
ED Medical Screen (RME) - General Chief Complaint: General Weakness Stated Complaint: BODY PAIN Time Seen by Provider: 03/14/20 23:20 Primary Care Provider: TAMEKA CRONIN DO [Primary Care Provider] - Follow up as needed Mode of Arrival: Ambulatory Information source: Patient Notes: 19-year-old female presented to ED for complaint of fainting for 2-1/2 weeks headaches for 2 weeks shaking for a week low blood pressure vaginal bleeding x2 months after childbirth 2 months ago. She went to her 4-week follow-up checkup and everything was okay even though she was still bleeding at that time. She does have a history of hypoglycemia seasonal allergies PTSD depression ovarian cyst with the ovary and fallopian tube on that side removed endoscopy to remove a quarter as a child and wisdom tooth removal. She does smoke 1/2 pack a day does not drink or do any drugs. She is here with her . She states that they called the nurse line and gave her a long list of things that she needed this is in the chart. I have greeted and performed a rapid initial assessment of this patient. A comprehensive ED assessment and evaluation of the patient, analysis of test results and completion of medical decision making process will be conducted by an additional ED providers. TRAVEL OUTSIDE OF THE [place] IN LAST 30 DAYS: No - Related Data Allergies/Adverse Reactions: Opioids - Morphine Analogues Adverse Reaction (Mild, Verified 01/03/20 21:40) VOMITING Gas Anesthesia Allergy (Unknown, Uncoded 01/03/20 16:02) BP drops Past Medical History - Past Medical History Cardiac Medical History: Denies: Hx Coronary Artery Disease, Hx Heart Attack, Hx Hypertension Pulmonary Medical History: Reports: Hx Asthma Denies: Hx Bronchitis, Hx COPD, Hx Pneumonia Neurological Medical History: Denies: Hx Cerebrovascular Accident, Hx Seizures Endocrine Medical History: Comment Only: Hx Diabetes Mellitus Type 1 - hypoglycemia Renal/ Medical History: Denies: Hx Peritoneal Dialysis Musculoskeltal Medical History: Denies Hx Arthritis Psychiatric Medical History: Reports: Hx Depression Past Surgical History: Reports: Hx Tonsillectomy - Immunizations Immunizations up to date: Yes Hx Diphtheria, Pertussis, Tetanus Vaccination: Yes Physical Exam - Vital signs Vitals: Temp Pulse Resp BP Pulse Ox 98.0 F 72 18 138/77 H 99 03/14/20 22:28 03/14/20 22:28 03/14/20 22:28 03/14/20 22:28 03/14/20 22:28 Course - Vital Signs Vital signs: Temp Pulse Resp BP Pulse Ox 98.0 F 72 18 138/77 H 99 03/14/20 22:28 03/14/20 22:28 03/14/20 22:28 03/14/20 22:28 03/14/20 22:28 Doctor's Discharge - Discharge Referrals: TAMEKA CRONIN DO [Primary Care Provider] - Follow up as needed
--- NOTE | 2020-03-15 00:37 | RADIOLOGY REPORT (SQ) ---
US PELVIS TRANSVAGINAL HISTORY: 19 years Female pelvic pain and vaginal bleeding. Nine weeks . COMPARISON: Pelvic ultrasound dated February 06, 2020. Technique: Endovaginal Imaging of the pelvis was performed. Color and spectral imaging was performed. Uterus: The uterus is anteverted. It measures 9.2 x 4.1 x 5.8 cm. Cervix is closed and measures 2.7 cm in length. There is a small nabothian cyst on the cervix. Trace fluid is present in the endocervical canal. The endometrium measures 9.3 mm. Right Ovary: The ovary measures 4.4 x 2.5 x 2.4 cm and appears normal.. Normal color and spectral doppler waveforms Left Ovary: Surgically absent Other: No free fluid IMPRESSION: 1. Normal-appearing uterus. No evidence of retained products of conception. Small the both and cysts at the cervix. 2. Normal right ovary. 3. The left ovary is surgically absent.
[2020-03-15] MEDS ORDERED: NORMAL SALINE 1000 ML 1,000 ML IV ONE (01:16)
[2020-03-15 01:44] LABS: ABSOLUTE BASOPHILS # (AUTO) 0.1 10^3/uL (0.0-0.2); ABSOLUTE EOSINOPHILS # (AUTO) 0.4 10^3/uL (0.0-0.6); ABSOLUTE LYMPHOCYTES (AUTO) 2.2 10^3/uL (0.5-4.7); ABSOLUTE MONOCYTES (AUTO) 0.5 10^3/uL (0.1-1.4); ABSOLUTE NEUT (AUTO) 5.2 10^3/uL (1.7-8.2); BASOPHILS % (AUTO) 1.1 % (0-2); EOSINOPHILS % (AUTO) 4.6 % (0-6); HEMATOCRIT 35.5 % (36.0-47.0); HEMOGLOBIN 11.5 g/dL (12.0-15.5); LYMPHOCYTES % (AUTO) 26.7 % (13-45); MEAN CORPUSCULAR HEMOGLOBIN 23.5 pg (27.0-33.4); MEAN CORPUSCULAR HGB CONC 32.4 g/dL (32.0-36.0); MEAN CORPUSCULAR VOLUME 73 fl (80-97); MONOCYTES % (AUTO) 5.8 % (3-13); PLATELET COUNT 270 10^3/uL (150-450); RED CELL DISTRIBUTION WIDTH 19.3 % (11.5-14.0); SEGMENTED NEUTROPHILS % (AUTO) 61.8 % (42-78); TOTAL CELLS COUNTED % (AUTO) 100 %; WHITE BLOOD COUNT 8.3 10^3/uL (4.0-10.5)
[2020-03-15 01:52] LABS: APPEARANCE,URINE CLEAR; BILIRUBIN,URINE NEGATIVE (NEGATIVE); COLOR,URINE YELLOW; GLUCOSE, URINE NEGATIVE (NEGATIVE); KETONES,URINE NEGATIVE (NEGATIVE); LEUKOCYTE ESTERASE,URINE NEGATIVE (NEGATIVE); NITRITE,URINE NEGATIVE (NEGATIVE); PROTEIN,URINE NEGATIVE (NEGATIVE); URINE SPECIFIC GRAVITY 1.018; UROBILINOGEN,URINE NEGATIVE mg/dL (<2.0)
[2020-03-15 02:13] LABS: ALBUMIN 4.2 g/dL (3.5-5.0); ALKALINE PHOSPHATASE 61 U/L (38-126); ANION GAP 12 (5-19); ASPARTATE AMINO TRANSFERASE 19 U/L (14-36); BILIRUBIN,DIRECT 0.2 mg/dL (0.0-0.4); BILIRUBIN,TOTAL 0.6 mg/dL (0.2-1.3); BLOOD UREA NITROGEN 10 mg/dL (7-20); CALCIUM 9.2 mg/dL (8.4-10.2); CARBON DIOXIDE 24 mmol/L (22-30); CHLORIDE 105 mmol/L (98-107); GLUCOSE 86 mg/dL (75-110); TOTAL PROTEIN 7.2 g/dL (6.3-8.2)
[2020-03-15 02:30] LABS: URINE AMPHETAMINES SCREEN NEGATIVE; URINE BARBITURATES SCREEN NEGATIVE; URINE BENZODIAZEPINES SCREEN NEGATIVE; URINE COCAINE SCREEN NEGATIVE; URINE METHADONE SCREEN NEGATIVE; URINE PHENCYCLIDINE SCREEN NEGATIVE
[2020-03-15 02:31] LABS: URINE MARIJUANA (THC) SCREEN UNCONFIRMED POSITIVE
--- NOTE | 2020-03-15 02:37 | ER Document Report ---
ED Dizziness/Weakness - General Chief Complaint: General Weakness Stated Complaint: BODY PAIN Time Seen by Provider: 03/14/20 23:20 Primary Care Provider: TAMEKA CRONIN DO [NO LOCAL MD] - Follow up as needed Mode of Arrival: Ambulatory Information source: Patient TRAVEL OUTSIDE OF THE [place] IN LAST 30 DAYS: No - HPI Notes: Patient delivered a baby approximately 9 weeks ago. She states she is still having some bleeding as well as continuing to feel weak and lightheaded. [place] come to emergency department for evaluation. Patient states she is still bleeding and is going to approxi-1 pad per hour. She also has generalized body aches. These are intermittent. They are worse with exertion better with rest. They radiate throughout her body. They are crampy in nature. No significant vomiting or diarrhea. No fevers or rashes. - Related Data Allergies/Adverse Reactions: Opioids - Morphine Analogues Adverse Reaction (Mild, Verified 01/03/20 21:40) VOMITING Gas Anesthesia Allergy (Unknown, Uncoded 01/03/20 16:02) BP drops Past Medical History - General Information source: Patient - Social History Smoking Status: Current Every Day Smoker Frequency of alcohol use: None Drug Abuse: Marijuana Family History: Reviewed & Not Pertinent - Past Medical History Cardiac Medical History: Denies: Hx Coronary Artery Disease, Hx Heart Attack, Hx Hypertension Pulmonary Medical History: Reports: Hx Asthma Denies: Hx Bronchitis, Hx COPD, Hx Pneumonia Neurological Medical History: Denies: Hx Cerebrovascular Accident, Hx Seizures Endocrine Medical History: Comment Only: Hx Diabetes Mellitus Type 1 - hypoglycemia Renal/ Medical History: Denies: Hx Peritoneal Dialysis Musculoskeletal Medical History: Denies Hx Arthritis Psychiatric Medical History: Reports: Hx Depression Past Surgical History: Reports: Hx Tonsillectomy - Immunizations Immunizations up to date: Yes Hx Diphtheria, Pertussis, Tetanus Vaccination: Yes Review of Systems - Review of Systems Constitutional: Malaise, Weakness Respiratory: denies: Cough, Short of breath Female Genitourinary: Vaginal bleeding. denies: -: Yes All other systems reviewed and negative Physical Exam - Vital signs Vitals: Temp Pulse Resp BP Pulse Ox 98.0 F 72 18 138/77 H 99 03/14/20 22:28 03/14/20 22:28 03/14/20 22:28 03/14/20 22:28 03/14/20 22:28 Interpretation: Normal - General General appearance: Appears well, Alert - HEENT Head: Normocephalic, Atraumatic Eyes: Normal Pupils: PERRL - Respiratory Respiratory status: No respiratory distress Chest status: Nontender Breath sounds: Normal Chest palpation: Normal - Cardiovascular Rhythm: Regular Heart sounds: Normal auscultation Murmur: No - Abdominal Inspection: Normal Distension: No distension Bowel sounds: Normal Tenderness: Nontender Organomegaly: No organomegaly - Back Back: Normal, Nontender - Extremities General upper extremity: Normal inspection, Nontender, Normal color, Normal ROM, Normal temperature General lower extremity: Normal inspection, Nontender, Normal color, Normal ROM, Normal temperature, Normal weight bearing. No: Yao's sign - Neurological Neuro grossly intact: Yes Cognition: Normal Orientation: AAOx4 Cathy Coma Scale Eye Opening: Spontaneous [place] Coma Scale Verbal: Oriented [place]athy Coma Scale Motor: Obeys Commands [place] Coma Scale Total: 15 Speech: Normal Motor strength normal: LUE, RUE, LLE, RLE Sensory: Normal - Psychological Associated symptoms: Normal affect, Normal mood - Skin Skin Temperature: Warm Skin Moisture: Dry Skin Color: Normal Course - Re-evaluation Re-evalutation: 03/15/20 02:49 Patient presents 9 weeks after delivery. She states she still is bleeding a pad an hour however patient is not tachycardic and she is not hypotensive. Her hemoglobin is normal. Patient also states that she is having generalized body aches and malaise. Her labs do not show dehydration. I do not see any evidence of infection. It is possible she may have some type of viral syndrome although patient has no cough or cold or significant congestion. In the room she looks fine is smiling and appropriate. It appears at this time the most appropriate medical care will be to discharge the patient home to follow-up as an outpatient. - Vital Signs Vital signs: Temp Pulse Resp BP Pulse Ox 98.0 F 72 18 138/77 H 99 03/14/20 22:28 03/14/20 22:28 03/14/20 22:28 03/14/20 22:28 03/14/20 22:28 - Laboratory Result Diagrams: 03/15/20 01:32 03/15/20 01:32 Laboratory results interpreted by me: 03/15/20 03/15/20 01:32 01:32 Hgb 11.5 L Hct 35.5 L MCV 73 L MCH 23.5 L RDW 19.3 H Urine Blood LARGE H - Diagnostic Test Radiology reviewed: Image reviewed, Reports reviewed - EKG Interpretation by Me EKG shows normal: Sinus rhythm Rate: Normal - 61 Rhythm: NSR [place]/QRS: No: Right axis deviation, Left axis deviation Discharge - Discharge Clinical Impression: Viral syndrome, Vaginal bleeding Syncope Qualifiers: Syncope type: unspecified Qualified Code(s): R55 - Syncope and collapse Condition: Stable Disposition: HOME, SELF-CARE Instructions: Viral Syndrome ([facility]), Syncopal Episode ([facility]) Additional Instructions: Please follow up with cardiology as soon as possible Referrals: SANDY WILLINGHAM MD [ACTIVE PROVISIONAL STAFF] - Follow up tomorrow
[2020-03-15 03:15] VITALS: BP 126/74
--- NOTE | 2020-03-15 07:22 | EKG REPORT ---
SEVERITY:- OTHERWISE NORMAL ECG - SINUS ARRHYTHMIA, RATE 54-70 : Confirmed by: Juan R Lizarraga MD 15-Mar-2020 07:21:37
== END 2020-03-15 03:23 | disposition home or self-care (01) ==
LOC: ER 22:22
DX: O99.89 Other specified diseases and conditions complicating pregnancy, childbirth and the puerperium (principal); R55 Syncope and collapse; B34.9 Viral infection, unspecified; N93.9 Abnormal uterine and vaginal bleeding, unspecified; R53.1 Weakness; M79.10 Myalgia, unspecified site; E10.9 Type 1 diabetes mellitus without complications; F17.200 Nicotine dependence, unspecified, uncomplicated; Z88.8 Allergy status to other drugs, medicaments and biological substances
CPT/HCPCS: 36415; 76830; 80053; 80307; 81001; 83036; 84703; 85025; 93005; 93010; 99285

== ENCOUNTER 2020-03-22 20:30 | Emergency (ER) | payer OTHER ==
--- NOTE | 2020-03-22 20:54 | ER Document Report ---
ED Medical Screen (RME) - General Chief Complaint: Syncope Stated Complaint: BLOOD PRESSURE ISSUE Time Seen by Provider: 03/22/20 20:44 TRAVEL OUTSIDE OF THE [place] IN LAST 30 DAYS: No - HPI Notes: 03/22/20 20:50 19-year-old female to the emergency department with complaints of 2 episodes of syncope that occurred today. She states that her blood pressure has also been very labile. She states that at 1 point high and then other times low. She states that she feels like she has chills and that she is shaking. She also feels numbness throughout her body. Of note she is 3 months and has continued to bleed. She reports that she is gone through 13 maxipads today. Also of note the patient has a bad aortic valve and is currently on Midodrine drain because her ejection fraction is approximately 35%. She sees Dr. Bruce for her heart issues. She is currently taking iron and multivitamins. I performed a brief medical screening exam on the patient determined that the patient needs further evaluation and management by main side provider. I have placed initial orders to help expedite care. - Related Data Allergies/Adverse Reactions: Opioids - Morphine Analogues Adverse Reaction (Mild, Verified 01/03/20 21:40) VOMITING Gas Anesthesia Allergy (Unknown, Uncoded 01/03/20 16:02) BP drops Home Medications: MVI, iron, midodrine Past Medical History - Social History Frequency of alcohol use: None Drug Abuse: None - Past Medical History Cardiac Medical History: Denies: Hx Coronary Artery Disease, Hx Heart Attack, Hx Hypertension Pulmonary Medical History: Reports: Hx Asthma Denies: Hx Bronchitis, Hx COPD, Hx Pneumonia Neurological Medical History: Denies: Hx Cerebrovascular Accident, Hx Seizures Endocrine Medical History: Comment Only: Hx Diabetes Mellitus Type 1 - hypoglycemia Renal/ Medical History: Denies: Hx Peritoneal Dialysis Musculoskeltal Medical History: Denies Hx Arthritis Psychiatric Medical History: Reports: Hx Depression Past Surgical History: Reports: Hx Tonsillectomy - Immunizations Immunizations up to date: Yes Hx Diphtheria, Pertussis, Tetanus Vaccination: Yes Physical Exam - Vital signs Vitals: Temp Pulse Resp BP Pulse Ox 97.5 F 92 18 114/77 98 03/22/20 20:48 03/22/20 20:48 03/22/20 20:48 03/22/20 20:48 03/22/20 20:48 Course - Vital Signs Vital signs: Temp Pulse Resp BP Pulse Ox 97.5 F 92 18 114/77 98 03/22/20 20:48 03/22/20 20:48 03/22/20 20:48 03/22/20 20:48 03/22/20 20:48
--- NOTE | 2020-03-22 21:28 | ER Document Report ---
ED General - General Chief Complaint: Syncope Stated Complaint: BLOOD PRESSURE ISSUE Time Seen by Provider: 03/22/20 20:44 TRAVEL OUTSIDE OF THE [place] IN LAST 30 DAYS: No - HPI Notes: 19-year-old female presents with episodes of fainting. Patient is 3 months , and has been experiencing daily episodes of fainting and vaginal bleeding for the past 3 months. Patient states that she has fainting spells anywhere from 1-10 times per day. Usually the fainting spells are "not complete", meaning that she feels as though she will faint but then she lays down and her symptoms resolve. However today she had a "full" fainting episode, where she states she passed out and was "unresponsive for 1 minute". She has seen cardiology for the this issue. She states she has been put on midodrine for her blood pressure, her blood pressure drops. She states that she is also been told that her heart is "only deflating so much", therefore when she stands up her "heart overdoes it", and there is possibly an issue with her "aortic valve being stressed". She states she does not know the diagnosis of the possible aortic valve issue. She also states she does not know her ejection fraction. I reference that at triage she said her EF was 35%, she denies this, then stating that her "heart relaxes 35%". She states that she has been on a registered nurse cardiac telemetry for the past week, she is going to mail it in tomorrow to have it resulted. Patient additionally states that she has had constant vaginal bleeding for the past 3 months following delivery, often going through 1 pad per hour. Blood is described as dark red and light red. She states that she has addressed this with her OB, she has reportedly been told they we're "more concerned about her depression". Patient also states that she has a history of being hypoglycemic, her blood sugar has been 120, it usually is 80. She states that she manages this with diet, she is not diabetic and does not take any medications patient currently denies complaints. - Related Data Allergies/Adverse Reactions: Opioids - Morphine Analogues Adverse Reaction (Mild, Verified 01/03/20 21:40) VOMITING Gas Anesthesia Allergy (Unknown, Uncoded 01/03/20 16:02) BP drops Home Medications: MVI, iron, midodrine Past Medical History - General Information source: Patient - Social History Smoking Status: Former Smoker Frequency of alcohol use: None Drug Abuse: None Family History: Reviewed & Not Pertinent - Past Medical History Cardiac Medical History: Denies: Hx Coronary Artery Disease, Hx Heart Attack, Hx Hypertension Pulmonary Medical History: Reports: Hx Asthma Denies: Hx Bronchitis, Hx COPD, Hx Pneumonia Neurological Medical History: Denies: Hx Cerebrovascular Accident, Hx Seizures Endocrine Medical History: Comment Only: Hx Diabetes Mellitus Type 1 - hypoglycemia Renal/ Medical History: Denies: Hx Peritoneal Dialysis Musculoskeletal Medical History: Denies Hx Arthritis Psychiatric Medical History: Reports: Hx Depression Past Surgical History: Reports: Hx Tonsillectomy - Immunizations Immunizations up to date: Yes Hx Diphtheria, Pertussis, Tetanus Vaccination: Yes Review of Systems - Review of Systems Constitutional: denies: Chills, Fever EENT: No symptoms reported Cardiovascular: denies: Chest pain Respiratory: denies: Short of breath Gastrointestinal: denies: Abdominal pain, Diarrhea, Vomiting Genitourinary: denies: Dysuria Female Genitourinary: Heavy/abnormal periods Musculoskeletal: denies: Muscle pain Skin: No symptoms reported Neurological/Psychological: denies: Headaches Physical Exam - Vital signs Vitals: Temp Pulse Resp BP Pulse Ox 97.5 F 92 18 114/77 98 03/22/20 20:48 03/22/20 20:48 03/22/20 20:48 03/22/20 20:48 03/22/20 20:48 - General General appearance: Appears well, Alert In distress: None - HEENT Head: Normocephalic, Atraumatic Extraocular movements intact: Yes Pupils: PERRL - Respiratory Breath sounds: Normal. No: Rales - Cardiovascular Rhythm: Regular Heart sounds: Normal auscultation Murmur: No Pulses: Normal: Dorsalis pedis Normal capillary refill: Yes - Abdominal Inspection: Normal Tenderness: Nontender - Genitourinary External exam: No: Lesions Speculum exam: Cervix closed Vaginal bleeding: Mild Bimanuel exam: No: Cervical motion tender, Adnexal tenderness - Extremities General upper extremity: Normal ROM General lower extremity: Normal ROM. No: Edema - Neurological Neuro grossly intact: Yes Cognition: Normal Orientation: AAOx4 Cranial nerves: Normal Motor strength normal: LUE, RUE, LLE, RLE Sensory: Normal - Psychological Associated symptoms: Normal affect - Skin Skin Temperature: Warm Course - Re-evaluation Re-evalutation: 03/22/20 22:01 19-year-old female with syncope versus presyncope, ongoing for 2 to 3 months, apparently has seen cardiology for this. Based on her description, it does not sound like she has heart failure, no echoes are currently available in our system, is on midodrine additionally. I do not hear murmur to suggest aortic stenosis or regurgitation. Possible this represents some sort of postural reflexive syndrome. She is currently well-appearing, lungs are without rales, there is no peripheral edema. Will check cardiac markers to fully rule out. Additionally complains of chronic vaginal bleeding for the past 3 months, she is not hypotensive or tachycardic, will check hemoglobin as we have recent values to compare to, will also perform pelvic exam. 03/22/20 22:36 Labs reviewed. No leukocytosis or left shift to suggest infection. Hemoglobin is similar to previous values. Electrolytes are within normal limits. Troponin and BNP are negative. Urine does not suggest UTI. test is negative. 03/23/20 01:30 Pelvic exam performed. Patient has a mild amount of bleeding emanating from the cervix, it is maroon in color/similar to menstrual appearing blood. She had no tenderness on exam. I discussed reassuring work-up with patient. I again reiterated with her need to follow-up with OB, she voiced understanding. Return precautions given, stable at time of discharge. - Vital Signs Vital signs: Temp Pulse Resp BP Pulse Ox 97.5 F 92 18 114/77 98 03/22/20 20:48 03/22/20 20:48 03/22/20 20:48 03/22/20 20:48 03/22/20 20:48 - Laboratory Result Diagrams: 03/22/20 21:45 03/22/20 21:45 Laboratory results interpreted by me: 03/22/20 03/22/20 21:23 21:45 Hgb 11.4 L Hct 35.6 L MCV 72 L MCH 23.1 L RDW 18.9 H Urine Protein 30 H Urine Urobilinogen 4.0 H - Diagnostic Test Radiology reviewed: Image reviewed, Reports reviewed - EKG Interpretation by Me Additional EKG results interpreted by me: EKG is interpreted by me. Sinus rhythm, rate 76. Poor baseline in multiple leads. No gross ST abnormalities. Narrow QRS, QTC within normal limits. Discharge - Discharge Clinical Impression: Vaginal bleeding Fainting episodes Qualifiers: Syncope type: unspecified Qualified Code(s): R55 - Syncope and collapse Condition: Stable Disposition: HOME, SELF-CARE Additional Instructions: Please follow-up with OB as discussed. Be sure to drink plenty of fluids. Return to the emergency department any concerning worsening symptoms.
[2020-03-22 21:44] LABS: APPEARANCE,URINE CLEAR; BILIRUBIN,URINE NEGATIVE (NEGATIVE); COLOR,URINE YELLOW; GLUCOSE, URINE NEGATIVE (NEGATIVE); KETONES,URINE NEGATIVE (NEGATIVE); LEUKOCYTE ESTERASE,URINE NEGATIVE (NEGATIVE); NITRITE,URINE NEGATIVE (NEGATIVE); PROTEIN,URINE 30 mg/dL (NEGATIVE); URINE SPECIFIC GRAVITY 1.025
[2020-03-22] MEDS ORDERED: NORMAL SALINE 500 ML IV ONE (21:58)
[2020-03-22 22:01] LABS: ABSOLUTE BASOPHILS # (AUTO) 0.1 10^3/uL (0.0-0.2); ABSOLUTE EOSINOPHILS # (AUTO) 0.3 10^3/uL (0.0-0.6); ABSOLUTE LYMPHOCYTES (AUTO) 2.5 10^3/uL (0.5-4.7); ABSOLUTE MONOCYTES (AUTO) 0.6 10^3/uL (0.1-1.4); ABSOLUTE NEUT (AUTO) 4.5 10^3/uL (1.7-8.2); BASOPHILS % (AUTO) 1.3 % (0-2); EOSINOPHILS % (AUTO) 3.5 % (0-6); HEMATOCRIT 35.6 % (36.0-47.0); HEMOGLOBIN 11.4 g/dL (12.0-15.5); LYMPHOCYTES % (AUTO) 31.5 % (13-45); MEAN CORPUSCULAR HEMOGLOBIN 23.1 pg (27.0-33.4); MEAN CORPUSCULAR VOLUME 72 fl (80-97); MONOCYTES % (AUTO) 7.4 % (3-13); PLATELET COUNT 282 10^3/uL (150-450); RED BLOOD COUNT 4.92 10^6/uL (3.72-5.28); RED CELL DISTRIBUTION WIDTH 18.9 % (11.5-14.0); SEGMENTED NEUTROPHILS % (AUTO) 56.3 % (42-78); TOTAL CELLS COUNTED % (AUTO) 100 %
--- NOTE | 2020-03-22 22:04 | RADIOLOGY REPORT (SQ) ---
CHEST X-RAY 1 VIEW on 03/22/2020 at 9:37 PM CLINICAL INDICATION: Syncope COMPARISON: None FINDINGS: The lungs are clear. Cardiac, hilar and mediastinal contours are within normal limits. Pulmonary vascularity is within normal limits. No bony abnormality is noted. IMPRESSION: No active disease.
[2020-03-22 22:14] LABS: ALBUMIN 4.4 g/dL (3.5-5.0); ALKALINE PHOSPHATASE 50 U/L (38-126); ANION GAP 8 (5-19); ASPARTATE AMINO TRANSFERASE 18 U/L (14-36); BILIRUBIN,DIRECT 0.3 mg/dL (0.0-0.4); BILIRUBIN,TOTAL 0.4 mg/dL (0.2-1.3); BLOOD UREA NITROGEN 9 mg/dL (7-20); CALCIUM 9.1 mg/dL (8.4-10.2); CARBON DIOXIDE 26 mmol/L (22-30); CHLORIDE 107 mmol/L (98-107); GLUCOSE 91 mg/dL (75-110); POTASSIUM 3.8 mmol/L (3.6-5.0); TOTAL PROTEIN 7.5 g/dL (6.3-8.2)
[2020-03-22 22:28] LABS: NT PRO BNP 45 pg/mL (<125)
[2020-03-22 22:29] LABS: TROPONIN I < 0.012 ng/mL
[2020-03-22] MEDS ORDERED: KETOROLAC TROMETHAMINE INJ/PF 30 MG/1 ML SDV IV ONE (22:46)
[2020-03-23 01:41] LABS: BACTERIA (WET MOUNT) 4+ BACTERIA SEEN; RBCS (WET MOUNT) 4+ RBCS SEEN; T.VAGINALIS (WET MOUNT) NO TRICHOMONAS SEEN; WBCS (WET MOUNT) 3+ WBCS SEEN; YEAST (WET MOUNT) NO YEAST SEEN
[2020-03-23 02:02] VITALS: BP 124/74
[2020-03-23 03:03] LABS: CHLAM PCR NOT DETECTED (NOT DETECT)
--- NOTE | 2020-03-23 08:50 | EKG REPORT ---
SEVERITY:- NORMAL ECG - SINUS RHYTHM BASELINE ARTEFACT : Confirmed by: Emmett Lopez MD 23-Mar-2020 08:49:33
== END 2020-03-23 02:07 | disposition home or self-care (01) ==
LOC: ER 20:30
DX: N93.8 Other specified abnormal uterine and vaginal bleeding (principal); R55 Syncope and collapse
CPT/HCPCS: 93005; 99285; 96361; 96374; 86900; 86901; 36415; 87210; 86850; 85025; 81025; 80053; 81001; 84484; 87491; 87591; 83880; 71045; 93010; J1885; J7040